=== PATIENT | male | born 1955 | race Caucasian/White ===

== ENCOUNTER → 2016-12-09 | Outpatient (CLI) | payer OTHER ==
[~2016-12-09] MED LIST: PERCOCET 5/31 TABLET PO
== END | disposition home or self-care (01) ==
LOC: CDC 14:01
DX: K42.9 Umbilical hernia without obstruction or gangrene (principal)
CPT/HCPCS: 93000

== ENCOUNTER 2016-12-24 06:51 | Day surgery (SDC) | payer OTHER ==
[~2016-12-24] VITALS: Ht 180.3 cm; Wt 104.3 kg
[~2016-12-24 06:51] MED LIST changes: +ATENOLOL50 MG PO; +DAILY MULTIPLE1 EACH PO; +ENALAPRIL MALEA20 MG PO
[2016-12-24 07:06] VITALS: BP 159/89
[2016-12-24] MEDS ORDERED: NORCO 5/3251 TABLET PO (10:23)
[2016-12-24 12:21] VITALS: BP 190/97
[2016-12-24 13:20] VITALS: BP 134/75
[2016-12-24 14:12] VITALS: BP 154/87
== END 2016-12-24 14:20 | disposition home or self-care (01) ==
LOC: SDC 06:51
PROC: 0WUF4JZ Supplement Abdominal Wall with Synthetic Substitute, Percutaneous Endoscopic Approach (ICD-10-PCS; principal; 2016-12-24)
DX: K43.9 Ventral hernia without obstruction or gangrene (principal); I10 Essential (primary) hypertension; K21.9 Gastro-esophageal reflux disease without esophagitis; F17.220 Nicotine dependence, chewing tobacco, uncomplicated; Z79.82 Long term (current) use of aspirin; Z88.2 Allergy status to sulfonamides
CPT/HCPCS: C1781; J0131; J0330; J0690; J1100; J1170; J1885; J2250; J2405; J3010